=== PATIENT | male | born 1990 | race Caucasian/White ===

== ENCOUNTER 2018-09-09 11:45 | Emergency (ER) | payer OTHER ==
[2018-09-09] MEDS ORDERED: CEFAZOLIN SODIUM 1 GM PDS 2 GM in SODIUM CHLORIDE 0.9% 100 ML 100 ML IV ONE (11:50)
[2018-09-09 12:04] LABS: BASOPHILS % (AUTO) 1 % (0-3); EOSINOPHILS % (AUTO) 0 % (0-9); HEMATOCRIT 45 % (39-53); HEMOGLOBIN 15.3 gm/dl (13.5-17.7); LYMPHOCYTES % (AUTO) 23.7 % (10-50); MEAN CORPUSCULAR HEMOGLOBIN 30.5 pg (27.0-32.0); MEAN CORPUSCULAR HGB CONC 33.8 gm/dl (32.0-36.0); MEAN CORPUSCULAR VOLUME 90 fL (80-100); MONOCYTES % (AUTO) 7.4 % (0-12); NEUTROPHILS % (AUTO) 67.8 % (37-80)
[2018-09-09] MEDS ORDERED: HYDROMORPHONE 1 MG/ML SYRINGE ONE (12:06)
[2018-09-09] MEDS ORDERED: HYDROMORPHONE 1 MG/ML SYRINGE IV PRN (12:08)
[2018-09-09 12:11] LABS: CALCIUM 9.6 mg/dl (8.5-10.1); CARBON DIOXIDE 23.5 mEq/L (21-32); CREATININE 0.98 mg/dl (0.80-1.30); POTASSIUM 3.7 mMol/L (3.5-5.1)
[2018-09-09] MEDS ORDERED: BUPIVACAINE/EPI 0.5% 10 ML SOL INFIL ONE (12:12)
[2018-09-09 12:15] LABS: INR 1.03 (0.86-1.12)
[2018-09-09] MEDS ORDERED: LIDOCAINE HCL 2% MPF 10 ML SOL ONE (12:15)
[2018-09-09] MEDS ORDERED: BUPIVACAINE HCL 0.5% MPF 10 ML SOL ONE (12:15)
[2018-09-09] MEDS ORDERED: BUPIVACAINE HCL 0.5% MPF 10 ML SOL INFIL ONE (12:20)
[2018-09-09] MEDS: LIDOCAINE HCL 2% MPF 10 ML SOL SC ONE (12:20)
[2018-09-09] MEDS ORDERED: LIDOCAINE HCL 2% MPF 10 ML SOL SC ONE (12:20)
[2018-09-09 12:37] VITALS: RESP 20
[2018-09-09 13:09] VITALS: TEMP 97.2
[2018-09-09 14:36] VITALS: BP 133/75; PULSE 95; O2SAT 100
== END 2018-09-09 14:53 | disposition home or self-care (01) | DRG 605 ==
LOC: ED 11:45
DX: S61.210A Laceration without foreign body of right index finger without damage to nail, initial encounter (principal); S61.212A Laceration without foreign body of right middle finger without damage to nail, initial encounter; W30.89XA Contact with other specified agricultural machinery, initial encounter
CPT/HCPCS: 36415; 73140; 80048; 85025; 85610; 96365; 99284; 99285; J0690; A6402; J1170